=== PATIENT | male | born 1950 | race Caucasian/White ===

== ENCOUNTER 2024-03-13 21:06 | Emergency (ER) | payer OTHER ==
[~2024-03-13] VITALS: Ht 175.3 cm; Wt 72.6 kg
[2024-03-13 21:57] LABS: BASOPHILS % (AUTO) 0.4 % (0.0-2.0); DIFFERENTIAL COMMENT 1; EOSINOPHILS % (AUTO) 0.2 % (0.0-7.0); HEMATOCRIT 39.7 % (36.7-47.1); HEMOGLOBIN 13.2 g/dL (12.5-16.3); LYMPHOCYTES # (AUTO) 0.8 K/uL (0.8-4.8); LYMPHOCYTES % (AUTO) 7.5 % (20.5-51.5); MEAN CORPUSCULAR HEMOGLOBIN 32.3 uug (23.8-33.4); MEAN CORPUSCULAR HGB CONC 33 g/dL (32.5-36.3); MEAN CORPUSCULAR VOLUME 96.9 fL (73.0-96.2); MONOCYTES # (AUTO) 1.1 K/uL (0.1-1.30); MONOCYTES % (AUTO) 10.4 % (0.0-11.0); NEUTROPHILS # (AUTO) 8.6 K/uL (1.8-8.9); NEUTROPHILS % (AUTO) 81.5 % (38.5-71.5); PLATELET COUNT (AUTO) 242 K/uL (152-348); RED CELL DISTRIBUTION WIDTH 14.3 % (12.1-16.2); WHITE BLOOD COUNT (AUTO) 10.5 K/uL (3.6-10.2)
[2024-03-13 22:08] LABS: ALANINE AMINOTRANSFERASE 13 U/L (16-63); ALBUMIN 3.6 g/dL (3.4-5.0); ALKALINE PHOSPHATASE 77 U/L (50-136); ASPARTATE AMINOTRANSFERASE 9 U/L (15-37); BILIRUBIN,DIRECT 0.3 mg/dL (0.0-0.2); BILIRUBIN,TOTAL 1.1 mg/dL (0.2-1.0); CALCIUM 9.1 mg/dL (8.5-10.1); CARBON DIOXIDE 24 mmol/L (21-32); CHLORIDE 104 mmol/L (98-107); CREATININE 1.8 mg/dL (0.6-1.3); GLUCOSE 108 mg/dL (74-106); LIPASE 17 U/L (16-77); POTASSIUM 3.6 mmol/L (3.5-5.1); SODIUM SERUM 141 mmol/L (136-145); TOTAL PROTEIN, SERUM 6.6 g/dL (6.4-8.2); UREA NITROGEN, BLOOD 20 mg/dL (7-18)
[2024-03-13] MEDS: ONDANSETRON 4 MG/2 ML VIAL IV ONE (22:12)
[2024-03-13] MEDS: HYDROMORPHONE 1 MG/1 ML DISP.SYRIN IV ONE (22:12)
[2024-03-13] MEDS: IV NORMAL SALINE 1000 ML BAG IV ONE (22:12)
[2024-03-13] MEDS ORDERED: HYDROMORPHONE 1 MG/1 ML DISP.SYRIN ONE (22:14)
[2024-03-13] MEDS ORDERED: ONDANSETRON 4 MG/2 ML VIAL ONE (22:14)
[2024-03-13] MEDS ORDERED: ESCI5TAB16 PO (22:38)
[2024-03-13] MEDS ORDERED: GABA-536 PO (22:38)
[2024-03-13] MEDS ORDERED: GABA-532 PO (22:38)
[2024-03-13] MEDS ORDERED: QUET100T PO (22:38)
[2024-03-13] MEDS ORDERED: BUPR-319 PO (22:38)
[2024-03-13] MEDS ORDERED: ONDA4TAB11 PO (23:06)
[2024-03-13] MEDS ORDERED: DICY20TA11 PO (23:06)
[2024-03-14] MEDS: ONDANSETRON ODT 4 MG TAB.RAPDIS SL ONE (01:02)
[2024-03-14] MEDS: DICYCLOMINE HCL LIQ 10 MG/5 ML UDC PO ONE (01:02)
[2024-03-14] MEDS ORDERED: DICYCLOMINE HCL LIQ 10 MG/5 ML UDC ONE (01:04)
[2024-03-14] MEDS ORDERED: ONDANSETRON ODT 4 MG TAB.RAPDIS ONE (01:04)
[2024-03-14 01:19] VITALS: BP 120/72; TEMP 98; O2SAT 99
[2024-03-14] MEDS ORDERED: DICY20TA11 PO (15:06)
[2024-03-14] MEDS ORDERED: ONDA4TAB11 PO (15:06)
== END 2024-03-14 01:20 | disposition home or self-care (01) ==
LOC: ER 21:11
DX: E86.0 Dehydration (principal); R10.9 Unspecified abdominal pain; R19.7 Diarrhea, unspecified; F32.9 Major depressive disorder, single episode, unspecified; Z88.1 Allergy status to other antibiotic agents; Z79.899 Other long term (current) drug therapy
CPT/HCPCS: 99285; 74176; 96374; 96361; 96375; 80076; 80048; 83690; 85025; 36415; J2405; J1170; J7040; A4606; A4663; Q0162